=== PATIENT | female | born 1970 | race Two or more races ===

== ENCOUNTER 2021-01-02 08:52 | Emergency (ER) | payer OTHER ==
[~2021-01-02] VITALS: Ht 157.5 cm; Wt 58.9 kg
[2021-01-02] MEDS ORDERED: TRANEXAMIC ACID 650 MG TAB PO ONE (09:55)
[2021-01-02 10:34] VITALS: BP 119/78
== END 2021-01-02 10:45 | disposition home or self-care (01) ==
LOC: ED 10:39
DX: N92.0 Excessive and frequent menstruation with regular cycle (principal)
CPT/HCPCS: 99283